=== PATIENT | female | born 1970 | race Caucasian/White ===

== ENCOUNTER → 2020-04-16 12:05 | Outpatient (CLI) | payer OTHER, BC, SELFPAY ==
--- NOTE | 2020-04-16 | DI.US.S_ITS ---
PROCEDURE: US PELVIC COMPLETE INDICATIONS: DUB TECHNIQUE: Real-time scanning was performed of the pelvic organs, with image documentation. Additional endovaginal scanning was necessary due to incomplete visualization of the adnexal and endometrial structures by transabdominal scanning. COMPARISON: None. FINDINGS: Transabdominal scanning: Limited scanning through the kidneys shows no hydronephrosis. No pathologic free abdominal or pelvic fluid. Endovaginal scanning: Uterus: Uterus is normal in size at 8.5 x 4.9 x 6.6 cm. The endometrium measures 7.2 mm in combined thickness. Multiple nabothian cysts. Ovaries: Ovaries not identified. No adnexal masses seen. IMPRESSION: No source for dysfunctional uterine bleeding. Dictated by: Alexandr Webb [facility] Interpreted: Ramandeep Flores MD on 04/16/2020 at 13:35 Approved by: Ramandeep Flores M.D. on 04/16/2020 at 16:19
== END ==
PROVIDERS: PCP Family Medicine; Referring Provider Family Medicine; Visit Provider Family Medicine
DX: N92.0 Excessive and frequent menstruation with regular cycle (principal); N93.8 Other specified abnormal uterine and vaginal bleeding
CPT/HCPCS: 76830; 76856

== ENCOUNTER → 2020-05-14 15:22 | Outpatient (CLI) | payer OTHER, BC, SELFPAY ==
--- NOTE | 2020-05-14 | DI.RAD.S_ITS ---
PROCEDURE: XR HAND RT MIN 3V INDICATIONS: bilateral hand pain TECHNIQUE: 3 views of the hand(s) acquired. COMPARISON: [facility], CR, FINGER(S) MIN 2VW, 11/18/2014, 15:47. FINDINGS: Bones: No fractures or dislocations. Carpal bones are normally aligned. No suspicious bony lesions. Note is made of joint space narrowing at the distal interphalangeal joints with morphologic distortion of the 3rd distal interphalangeal joint resulting in a pencil in cup morphology at the distal interphalangeal margins. No trauma found. Radiocarpal joint mild degenerative osteoarthritis appears present. Soft tissues: No suspicious soft tissue calcifications. IMPRESSION: Suspect psoriatic arthritis superimposed on chronic degenerative osteoarthritic disease, with erosive changes at the 3rd distal interphalangeal joint. Dictated by: Hemal Perez M.D. on 05/14/2020 at 16:19 Approved by: Hemal Perez M.D. on 05/14/2020 at 16:21
--- NOTE | 2020-05-14 | DI.RAD.S_ITS ---
PROCEDURE: XR HAND LT MIN 3V INDICATIONS: bilateral hand pain TECHNIQUE: 3 views of the hand(s) acquired. COMPARISON: [facility], CR, XR HAND RT MIN 3V, 05/14/2020, 15:33. FINDINGS: Bones: No fractures or dislocations. Carpal bones are normally aligned. No suspicious bony lesions. There is a combination of degenerative osteoarthritic change with joint space narrowing, and also what appears to be potentially psoriatic arthritis involving the distal interphalangeal joints of the 2nd and 3rd digits. Significant pencil in cup deformity is present at those 2 sites. Soft tissues: No suspicious soft tissue calcifications. IMPRESSION: Suspect psoriatic arthritis superimposed upon degenerative osteoarthritic change in this patient as cause of the erosive changes at the 2nd and 3rd distal interphalangeal joints. Dictated by: Hemal Perez M.D. on 05/14/2020 at 16:16 Approved by: Hemal Perez M.D. on 05/14/2020 at 16:19
== END ==
PROVIDERS: PCP Family Medicine; Referring Provider Family Medicine; Visit Provider Family Medicine
DX: M79.641 Pain in right hand (principal); M79.642 Pain in left hand
CPT/HCPCS: 73130